=== PATIENT | male | born 1965 | race Caucasian/White ===

== ENCOUNTER 2016-12-17 08:34 | Day surgery (SDC) | payer BC ==
[~2016-12-17] VITALS: Ht 172.7 cm; Wt 82.4 kg
[2016-12-17] MEDS ORDERED: LIPI10TA PO (09:18)
[2016-12-17] MEDS ORDERED: FISHCAP2 PO (09:18)
[2016-12-17] MEDS ORDERED: FISHCAP2 (09:18)
[2016-12-17 09:21] VITALS: BP 143/88; PULSE 54; RESP 18; TEMP 97.7; O2SAT 98
[2016-12-17 09:28] LABS: AUTOMATED NEUTROPHIL # 2.2 TH/MM3 (1.8-7.7); BASOPHIL % 0.5 % (0.0-2.0); EOSINOPHIL # 0.1 TH/MM3 (0-0.4); EOSINOPHIL % 3.5 % (0.0-4.0); HEMATOCRIT 43.1 % (39.0-51.0); HEMO FLAGS DIFF FINAL; LYMPH % 35.9 % (9.0-44.0); LYMPHOCYTE # 1.5 TH/MM3 (1.0-4.8); MEAN CELL VOLUME 91.8 FL (80.0-100.0); MEAN CORPUSCULAR HEMOGLOBIN 31.2 PG (27.0-34.0); MONO % 8.2 % (0.0-8.0); NEUT % 51.9 % (16.0-70.0); PLATELET COUNT 261 TH/MM3 (150-450); WHITE BLOOD COUNT 4.2 TH/MM3 (4.0-11.0)
[2016-12-17 09:45] LABS: APTT (PATIENT) 27.7 SEC (24.3-30.1); INTERNATIONAL NORMALIZED RATIO 0.9 RATIO; PROTHROMBIN TIME - PATIENT 10.3 SEC (9.8-11.6)
[2016-12-17 09:47] LABS: BICARBONATE 30.1 MEQ/L (21.0-32.0); POTASSIUM 3.9 MEQ/L (3.5-5.1)
[2016-12-17] MEDS ORDERED: NS 1000P @30 MLS/HR (KVO) IV SCH (10:15)
[2016-12-17] MEDS ORDERED: MIDAZOLAM HCL 2 MG/2 ML VIAL ONE (11:33)
[2016-12-17] MEDS ORDERED: HEPARIN-NS/PF INJ 500 ML ONE (11:33)
[2016-12-17] MEDS ORDERED: HEPARIN SODIUM - IV 10,000 UNITS/10 ML VIAL ONE (11:34)
[2016-12-17] MEDS ORDERED: IOHEXOL 350 MG/ML 100 ML BTL (for Cath Lab) OTHER ONE (12:00)
--- NOTE | 2016-12-17 14:27 | EKG ---
Date Performed: 12/17/2016 Time Performed: 09:28:18 PTAGE: 51 years EKG: Sinus bradycardia Normal ECG except for rate NO PREVIOUS TRACING DOCTOR: Paresh Patel Interpretating Date/Time 12/17/2016 14:26:41
[2016-12-17] MEDS ORDERED: SODIUM CHLOR 0.9% 1000 ML INJ 500 ML IV SCH (15:13)
[2016-12-17 17:06] LABS: HDL CHOLESTEROL 42.9 MG/DL (40.0-60.0)
--- NOTE | 2016-12-19 16:15 | MA ---
cc: ERA SANDHU DATE December 17, 2016 INDICATION Angina pectoris, class II angina, intermediate probability nuclear myocardial perfusion study. PROCEDURES 1. Retrograde left heart catheterization with left ventriculography and selective coronary angiography 2. Moderate sedation ACCESS SITE Right femoral artery. EQUIPMENT USED 5 Wolof pigtail catheter, 5 Wolof JL4 and AR modified coronary artery catheters. MEDICATIONS 1. Versed. 2. IV Fentanyl. CONTRAST Omnipaque 90 cc. COMPLICATIONS None. ESTIMATED BLOOD LOSS Less than 10 cc. METHOD OF HEMOSTASIS Manual compression. RESULTS HEMODYNAMICS Heart rate 60 beats per minute. Left ventricular end-diastolic pressure 13 mmHg. Left ventricle 110/13 Aorta 110/69/89 LEFT VENTRICULOGRAPHY Ejection fraction 55%. Wall motion normal. No mitral regurgitation. CORONARY ANGIOGRAPHY Left main coronary artery patent. Left anterior descending artery patent. D-1 patent. D-2 patent. Left circumflex artery patent. OM-1 patent. OM-2 patent. OM-3 patent. Left PDA patent. Right coronary artery is a co-dominant vessel which is patent. PDA patent, PLV small, patent. DIAGNOSES 1. Widely patent coronary arteries. 2. Preserved left ventricular systolic function. DISPOSITION Mr. Angeles can be reassured about his cardiac status. His study showed widely patent coronary arteries and preserved left ventricular systolic function. He will be discharged home later today. I will see him back for followup in our office after discharge. Era Sandhu MD OLucy/KK /12:24 PM /4:05 PM [facility]
== END 2016-12-17 17:00 | disposition home or self-care (01) ==
LOC: HDOC 08:34 → HDIC 08:35 → HDOC 17:00
PROVIDERS: ATTEND Internal Medicine Interventional Cardiology
DX: I20.9 Angina pectoris, unspecified (principal); E78.5 Hyperlipidemia, unspecified; R53.83 Other fatigue
CPT/HCPCS: 80048; 80061; 85025; 85610; 85730; 93005; 93458; C1769; C1893; J1644; J2250; J3010; Q9967